=== PATIENT | male | born 1955 | race Caucasian/White ===

== ENCOUNTER → 2020-07-22 | Outpatient (CLI) | payer BC, MEDICARE ==
--- NOTE | 2020-07-22 09:38 | US ---
EXAMINATION TYPE: US kidneys/renal and bladder DATE OF EXAM: 07/22/2020 COMPARISON: NONE CLINICAL HISTORY: R80.9 Proteinuria unspecified. diabetic EXAM MEASUREMENTS: Right Kidney: 11.0 x 5.2 x 5.2 cm Left Kidney: 11.0 x 6.0 x 5.6 cm Post Void Residual Volume: 189.5 mL Prostate (incidental finding noted): 63.5ml (enlarged prostate gland as is greater than 30.0ml.) Right Kidney: lower lateral cortical cyst seen = 0.5 x 0.6 x 0.5cm Left Kidney: extracapsular to inferior pole a crescent shaped area seen suggests sonographic "sweat s ign" and indicative of renal failure; mid lateral cortical cyst seen = 0.6 x 0.8 x 0.6cm; prominent c tayler noted inferior pole Bladder: wnl Bilateral Jets seen: yes Normal Post Void Residual: abnormal volume post void is noted The urinary bladder is satisfactorily distended. Bilateral ureteral jets are seen. After voiding sig nificant amount of residual urine, volume approaches 200 cc. Enlarged prostate bulging on bladder bas e. Technologist marked a 6 mm thin-walled cyst right kidney laterally and peripheral exophytic 6 mm t hin-walled cyst mid pole level left kidney. IMPRESSION: No hydronephrosis noted bilaterally. Bladder outlet obstruction related to BPH with abnor mal post void residual.
== END | disposition home or self-care (01) ==
LOC: RADUSWWP 07:54
PROVIDERS: ATTEND Family Medicine
DX: N32.0 Bladder-neck obstruction (principal); N40.0 Benign prostatic hyperplasia without lower urinary tract symptoms
CPT/HCPCS: 76770

== ENCOUNTER 2021-01-04 13:42 | Emergency (ER) | payer MEDICARE ==
--- NOTE | 2021-01-04 15:23 | ED ---
General Adult HPI - General Stated complaint: SOB - History of Present Illness Initial comments: 65-year-old male presents emergency Department with a chief complaint of cough and congestion. States the symptoms began yesterday along with a nonproductive cough. Reports mild exertional dyspnea but denies any chest pain. Does report having a fever which he took Tylenol for. Does report generalized fatigue and myalgias. Patient patient denies any nausea vomiting diarrhea. Denies any abdominal or back pain. He does report exposure to unknown coronavirus patient. He denies any headaches, blurry vision, one-sided weakness or paresthesias. - Related Data Previous Rx's Medication Instructions Recorded Azithromycin [Zithromax Z-pack (6 0 mg PO DIRECTED #1 pack 01/04/21 tabs)] Dexamethasone [Decadron] 6 mg PO DAILY #7 tablet 01/04/21 Allergies Allergy/AdvReac Type Severity Reaction Status Date / Time No Known Allergies Allergy Verified 01/04/21 15:24 Review of Systems ROS Statement: Those systems with pertinent positive or pertinent negative responses have been documented in the HPI. ROS Other: All systems not noted in ROS Statement are negative. General Exam Limitations: no limitations General appearance: alert, in no apparent distress Head exam: Present: atraumatic, normocephalic, normal inspection Eye exam: Present: normal appearance, PERRL, EOMI Pupils: Present: normal accommodation ENT exam: Present: normal exam, normal oropharynx, mucous membranes moist, TM's normal bilaterally, normal external ear exam Neck exam: Present: normal inspection, full ROM. Absent: tenderness Respiratory exam: Present: normal lung sounds bilaterally. Absent: respiratory distress, wheezes, rales, rhonchi, stridor Cardiovascular Exam: Present: regular rate, normal rhythm, normal heart sounds. Absent: systolic murmur, diastolic murmur Extremities exam: Present: normal inspection, full ROM, normal capillary refill. Absent: tenderness Back exam: Present: normal inspection, full ROM. Absent: tenderness, CVA tender ness (R), CVA tenderness (L) Neurological exam: Present: alert, oriented X3 Psychiatric exam: Present: normal affect, normal mood Skin exam: Present: warm, dry, intact, normal color Course Vital Signs 01/04/21 01/04/21 01/04/21 15:21 16:15 17:06 Temperature 100.1 F H Pulse Rate 103 H 90 92 Respiratory 24 18 18 Rate Blood Pressure 152/86 156/68 149/79 O2 Sat by Pulse 93 L 93 L 97 Oximetry 01/04/21 01/04/21 17:44 18:15 Temperature 98.2 F Pulse Rate 97 94 Respiratory 18 18 Rate Blood Pressure 114/72 118/74 O2 Sat by Pulse 94 L 94 L Oximetry Medical Decision Making - Medical Decision Making 65-year-old male presents to the emergency department with a chief complaint of cough and congestion. On physical examination, patient does not appear to be in respiratory distress. He was febrile and given Tylenol. Patient does take criteria for monoclonal antibody. Patient states he would like to have the medication and be discharged home. Patient was given the infusion and observed for one hour. Patient states he feels comfortable going home. I advised him to take antipyretics at home. Advised to drink plenty of fluids in quarantine. Patient has O2 saturation of 94%. X-ray revealed mild basilar infiltrates. Likely secondary to Coumadin pneumonia. Although, I will cover with azithromycin and will also start him on 6 g of Decadron. Strict return parameters were thoroughly discussed with the patient was understanding and agreeable. Case discussed with - Lab Data Lab Results 01/04/21 Range/Units 15:24 Coronavirus (PCR) Detected A (Not Detectd) Disposition Clinical Impression: COVID-19 Disposition: HOME SELF-CARE Condition: Stable Instructions (If sedation given, give patient instructions): Coronavirus Disease 2019 (COVID-19) Additional Instructions: Please return to the Emergency Department if symptoms worsen or any other concerns. Prescriptions: Dexamethasone [Decadron] 6 mg PO DAILY #7 tablet Azithromycin [Zithromax Z-pack (6 tabs)] 0 mg PO DIRECTED #1 pack Is patient prescribed a controlled substance at d/c from ED?: No Referrals: Vick Grewal MD [Primary Care Provider] - 1-2 days Time of Disposition: 17:12
--- NOTE | 2021-01-04 15:51 | XR ---
EXAMINATION TYPE: XR chest 2V DATE OF EXAM: 01/04/2021 COMPARISON: None INDICATION: Cough and fever TECHNIQUE: Frontal and lateral views of the chest are obtained. FINDINGS: The heart size is normal. The pulmonary vasculature is normal. Some patchy ill-defined peripheral infiltrates may be in the lower lung tucker on the frontal project ion. Findings are nonspecific. Correlate for atypical pneumonia. IMPRESSION: 1. Nonspecific mild bibasilar infiltrates. Correlate for atypical pneumonia.
[2021-01-04] MEDS ORDERED: ACETAMINOPHEN TAB 500 MG TAB PO STA (16:08)
[2021-01-04] MEDS ORDERED: BAMLANIVIMAB (EUA) 700 MG, ETESEVIMAB (EUA) 1,400 MG in SODIUM CHLORIDE 0.9% 50 ML IVPB ONE (17:00)
[2021-01-04 17:04] VITALS: RESP 18
[2021-01-04] MEDS ORDERED: SODIUM CHLORIDE 0.9% 50 ML IVPB ONE (18:00)
[2021-01-04 18:16] VITALS: BP 118/74; PULSE 94; TEMP 98.2
== END 2021-01-04 18:25 | disposition home or self-care (01) ==
LOC: EC 13:42
DX: U07.1 COVID-19 (principal)
CPT/HCPCS: 87635; 71046; 99285; 96365; Q0245

== ENCOUNTER → 2023-05-24 | Outpatient (CLI) | payer MEDICARE ==
[2023-05-24 13:13] LABS: African American GFR (CKD) 86 (>60 ml/min/1.73 sqM); Blood Urea Nitrogen 19 mg/dL (9-20); Non-African American GFR(CKD) 74 (>60 ml/min/1.73 sqM)
--- NOTE | 2023-05-24 13:46 | XR ---
EXAMINATION TYPE: XR chest 2V DATE OF EXAM: 05/24/2023 COMPARISON: 01/04/2021 HISTORY: Shortness of breath TECHNIQUE: Frontal and lateral views of the chest are obtained. FINDINGS: Scattered senescent parenchymal changes noted. Hyperinflation compatible with COPD. No evidence for infiltrate. No evidence for atelectasis. Heart size is stable. Mediastinal structures are stable and grossly unremarkable. No evidence for hilar prominence. Degenerative changes dorsal spine. IMPRESSION: 1. No evidence for acute pulmonary disease.
--- NOTE | 2023-05-24 15:07 | CT ---
EXAMINATION TYPE: CT abdomen pelvis w con CT DLP: 1523.4 mGycm, Automated exposure control for dose reduction was used. DATE OF EXAM: 05/24/2023 2:36 PM COMPARISON: Renal ultrasound 07/22/2020 CLINICAL INDICATION:Male, 68 years old with history of D75.1 SECONDARY POLYCYTHEMIA; Secondary polycy themia. TECHNIQUE: Standard CT of the abdomen and pelvis following the administration of 100 cc of Isovue 3 00 IV contrast material and oral contrast. Coronal and sagittal reformats were performed. FINDINGS: LOWER CHEST: Unremarkable ABDOMEN LIVER: Unremarkable GALLBLADDER AND BILE DUCTS: Unremarkable. PANCREAS: Unremarkable. SPLEEN: Unremarkable. ADRENAL GLANDS: Unremarkable. KIDNEYS AND URETERS: No evidence of hydronephrosis. Nonobstructive right lower pole 4 mm calculus. Th e kidneys enhance symmetrically. Left exophytic cortical lesion which is too small to characterize. C ontrast is demonstrated within both collecting systems on the delayed phase. PELVIS BLADDER: Unremarkable REPRODUCTIVE: Prostate is enlarged in size measuring 5.9 cm in transverse dimension. ABDOMEN & PELVIS STOMACH AND BOWEL: Stomach and duodenum are unremarkable. No focal bowel wall thickening or surroundi ng inflammatory changes. Enteric contrast reaches the rectum. No evidence of bowel obstruction. PERITONEUM: No evidence of pneumoperitoneum or free fluid. VASCULATURE: No evidence of aortic aneurysm. MUSCULOSKELETAL: No acute osseous abnormalities. Mild disc degeneration changes are present throughou t the thoracolumbar spine. LYMPH NODES: No evidence for lymphadenopathy. SOFT TISSUE/ABDOMINAL WALL: Fat filled right inguinal hernia. IMPRESSION: 1. No acute abdominal/pelvic process. 2. Nonobstructive right renal calculus. 3. Prostatomegaly.
== END | disposition home or self-care (01) ==
LOC: RADCTMAIN 12:29
PROVIDERS: ATTEND Internal Medicine Hematology & Oncology
DX: N20.0 Calculus of kidney (principal); D75.1 Secondary polycythemia; N40.0 Benign prostatic hyperplasia without lower urinary tract symptoms; G47.30 Sleep apnea, unspecified; I10 Essential (primary) hypertension; R06.02 Shortness of breath; Z71.3 Dietary counseling and surveillance
CPT/HCPCS: 82565; 84520; 71046; 74177; 36415; Q9967

== ENCOUNTER → 2024-01-09 | Outpatient (CLI) | payer MEDICARE ==
[2024-01-09 11:20] LABS: Basophils # (A) 0.07 X 10*3/uL (0.00-0.10); Eosinophils # (A) 0.14 X 10*3/uL (0.04-0.35); Eosinophils % (A) 2.1 %; HCT 51.6 % (39.6-50.0); HGB 16.8 g/dL (13.0-17.0); Lymphocytes % (A) 38.2 %; MCH 29.6 pg (27.0-32.0); MCHC 32.6 g/dL (32.0-37.0); MCV 90.8 FL (80.0-97.0); Mean Platelet Volume 10.9 FL (9.5-12.2); Monocytes % (A) 11.8 %; NRBC Per 100 WBC 0 X 10*3/uL (0.00-0.01); Neutrophils # (A) 3.18 X 10*3/uL (1.80-7.70); Neutrophils % (A) 46.8 %; Platelet Count 196 X 10*3/uL (140-440); RBC 5.68 X 10*6/uL (4.40-5.60); RDW 13.9 % (11.5-14.5)
[2024-01-09 11:52] LABS: ALT 11 U/L (10-49); AST 20 U/L (14-35); Albumin 4.5 g/dL (3.8-4.9); Albumin/Globulin Ratio 1.61 Ratio (1.60-3.17); Alkaline Phosphatase 77 U/L (41-126); BUN/Creat Ratio 16.91 Ratio (12.00-20.00); Blood Urea Nitrogen 18.6 mg/dL (9.0-27.0); Calcium 9.8 mg/dL (8.7-10.3); Carbon Dioxide 26.4 mmol/L (21.6-31.8); Chloride 104 mmol/L (96-109); Chol/HDL Ratio 3.43 Ratio; Globulin 2.8 g/dL (1.6-3.3); Glucose 131 mg/dL (70-110); LDL Cholesterol,Calculated 73.4 mg/dL (0.0-131.0); Potassium 4.8 mmol/L (3.5-5.5); Sodium 141 mmol/L (135-145); Total Bilirubin 0.4 mg/dL (0.3-1.2); Total Protein 7.3 g/dL (6.2-8.2)
== END | disposition home or self-care (01) ==
LOC: LABWHC1 07:09
PROVIDERS: ATTEND Family Medicine
DX: Z12.5 Encounter for screening for malignant neoplasm of prostate (principal); I10 Essential (primary) hypertension; E11.9 Type 2 diabetes mellitus without complications
CPT/HCPCS: 36415; 80053; 80061; 84153; 85025

== ENCOUNTER → 2025-04-27 | Outpatient (CLI) | payer MEDICARE ==
[~2025-04-27] MED LIST: SODIUM CHLORIDE 0.9% 250 ML in EMPTY BAG 1 BAG IV PRN
[2025-04-27 12:36] VITALS: BP 137/74; PULSE 69; RESP 16; TEMP 98.1
[2025-04-27] MEDS: SODIUM CHLORIDE 0.9% 500 ML 500 ML in EMPTY BAG 1 BAG IV PRN (12:37)
[2025-04-27] MEDS: IRON SUCROSE 200 MG in SODIUM CHLORIDE 0.9% 100 ML IVPB NR (12:38)
== END ==
LOC: PROCWHC3 12:24
DX: D50.9 Iron deficiency anemia, unspecified (principal)
CPT/HCPCS: 96365; J1756